=== PATIENT | female | born 1945 | race Caucasian/White ===

== ENCOUNTER 2024-05-18 10:27 | Emergency (ER) | payer OTHER, MEDICARE ==
[2024-05-18 10:40] VITALS: BP 123/60; PULSE 77; RESP 18; TEMP 98.8; BMI 26.6
[2024-05-18] MEDS ORDERED: methylPREDNISolone NA SUCC 125 MG/2 ML VIAL ONE (11:06)
[2024-05-18] MEDS: methylPREDNISolone NA SUCC 125 MG/2 ML VIAL IVPB ONE (11:15)
[2024-05-18] MEDS: ALBUTEROL SO4 2.5/IPRATROPIUM 0.5 INH SOL 3 ML VIAL.NEB. NEB SCH (11:20)
[2024-05-18 11:24] LABS: HEMATOCRIT 39.7 % (32.4-45.2); HEMOGLOBIN 12.9 G/dL (10.7-15.3); MCH 28.6 pg (25.7-33.7); MCHC 32.6 g/dl (32.0-36.0); MEAN CELL VOLUME 87.9 fl (80-96); MEAN PLT VOLUME 8.2 fl (7.5-11.1); PLATELET COUNT 208.9 10^3/uL (134-434); RBC 4.52 10^6/uL (3.60-5.2); RDW 14.1 % (11.6-15.6); WHITE BLOOD COUNT 10.1 10^3/uL (4.0-10.8)
[2024-05-18 11:33] LABS: ALBUMIN 4.3 g/dl (3.4-5.0); ALK PHOS 73 U/L (45-117); ANION GAP 8 mmol/L (4-13); BILIRUBIN,TOTAL 0.9 mg/dl (0.2-1); CALCIUM 8.8 mg/dl (8.5-10.1); CHLORIDE 101 mmol/L (98-107); CO2 25 mmol/L (21-32); CREATININE 0.7 mg/dl (0.6-1.3); GLUCOSE,RANDOM 109 mg/dl (74-106); POTASSIUM 3.9 mmol/L (3.5-5.1); SGOT/AST 21 U/L (15-37); SGPT/ALT 18 U/L (7-52); SODIUM 134 mmol/L (136-145); TOT PROT 6.5 g/dl (6.4-8.2)
[2024-05-18 12:18] LABS: PLATELET ESTIMATE ADEQUATE
[2024-05-18] MEDS ORDERED: DOXYCYCLINE HYCLATE 100 MG VIAL ONE (12:23)
[2024-05-18 12:32] LABS: VENOUS BASE EXCESS -1.2 mmol/L (-2-2); VENOUS O2 SATURATION 60.7 % (70-80); VENOUS PCO2 42.6 mmHg (38-52); VENOUS PH 7.372 (7.310-7.410)
[2024-05-18] MEDS: DOXYCYCLINE INJECTION 100 MG in DEXTROSE 5%-WATER 100 ML IVPB ONE (12:32)
== END 2024-05-18 13:25 | disposition home or self-care (01) ==
LOC: SUPCPDRO 10:27 → FER 10:27
PROC: 3E03329 Introduction of Other Anti-infective into Peripheral Vein, Percutaneous Approach (ICD-10-PCS; principal; 2024-05-18)
PROC: 3E033GC Introduction of Other Therapeutic Substance into Peripheral Vein, Percutaneous Approach (ICD-10-PCS; 2024-05-18)
DX: R05.9 Cough, unspecified (principal); R06.02 Shortness of breath; J18.9 Pneumonia, unspecified organism; Z20.822 Contact with and (suspected) exposure to COVID-19
CPT/HCPCS: 0241U-QW; 36415; 71045-TC-FY; 80053; 82803; 84484; 85027; 93005; 99285-25